=== PATIENT | female | born 1990 | race Caucasian/White ===

== ENCOUNTER 2024-01-28 13:20 | Emergency (ER) | payer MEDICAID, SELFPAY ==
[2024-01-28 13:21] VITALS: BMI 26.6
[2024-01-28 13:33] VITALS: BP 110/73; PULSE 59; RESP 16; TEMP 36.8; O2SAT 99
--- NOTE | 2024-01-28 13:38 | EKG_ITS ---
[facility] Test Date: 2024-01-28 Pat Name: CONNER MURPHY Department: Room: - Gender: Female [employer] Supervisor: : 1990 Requested By: Sukhwinder Gotti Order Number: [id number] Reading MD: Sukhwinder Gotti Measurements Intervals [place] Rate: 65 P: 56 NE: 138 QRS: 42 QRSD: 102 T: 50 QT: 403 QTc: 419 Interpretive Statements SINUS RHYTHM No previous ECG available for comparison /store/S0/[id number].pdf
--- NOTE | 2024-01-28 13:39 | PD.EDRME ---
Rapid Medical Screening Exam RME Arrival date/time: 01/28/24 13:20 Chief Complaint: Syncope / Near Syncope Time Seen by Provider: 01/28/24 13:23 Vital signs: Vital Signs Temperature 98.2 F 01/28/24 13:33 Pulse Rate 59 L 01/28/24 13:33 Respiratory Rate 16 01/28/24 13:33 Blood Pressure 110/73 01/28/24 13:33 Pulse Oximetry (%) 99 01/28/24 13:33 Oxygen Delivery Method Room Air 01/28/24 13:33 E Narrative: c/o fatigue, body aches, nausea, lightheadedness, near syncope since this morning.
[2024-01-28 14:12] LABS: Basophils # (Auto) 0.1 Thou/mm3 (0.0-0.2); Basophils % (Auto) 1 % (0-2.5); Eosinophils # (Auto) 0.1 Thou/mm3 (0.0-0.5); Eosinophils % (Auto) 1 % (0-10); Immature Granulocytes % (Auto) 0 % (0-0); Immature Granulocytes Auto 0.02 Thou/mm3 (0.00-0.00); Lymphocytes # (Auto) 2.1 Thou/mm3 (1.0-4.8); Lymphocytes % (Auto) 30 % (10-50); Mean Corpuscular HGB Conc 34.3 g/dl (31.0-37.0); Mean Corpuscular Hemoglobin 31.5 pg (25.0-35.0); Mean Corpuscular Volume 92 fL (80-100); Monocytes # (Auto) 0.4 Thou/mm3 (0.0-0.8); Monocytes % (Auto) 6 % (0-12); Neutrophils # (Auto) 4.5 Thou/mm3 (1.8-7.7); Neutrophils % (Auto) 63 % (37-80); Nucleated Red Blood Cell % 0 /100 WBC (0); Platelet Count 300 Thou/mm3 (140-440); RDW Standard Deviation 43.3 fL (36.4-46.3); Red Blood Count 3.81 Miln/mm3 (4.00-5.20); White Blood Count 7.1 Thou/mm3 (3.6-11.0)
[2024-01-28 14:29] LABS: Alanine Aminotransferase 31 U/L (10-49); Albumin, Serum 4.5 gm/dL (3.5-5.0); Alkaline Phosphatase 60 U/L (46-116); Anion Gap 4 (7-16); Aspartate Amino Transferase 19 U/L (0-34); BUN/Creatinine Ratio 14 Ratio (12-20); Bilirubin,Total 0.8 mg/dL (0.3-1.2); Blood Urea Nitrogen 14 mg/dL (9-23); Calcium 9.3 mg/dL (8.3-10.6); Calcium (Corrected) 9.3 mg/dL (8.5-10.1); Carbon Dioxide 26.4 mMol/L (20.0-31.0); Chloride 107 mMol/L (98-107); Estimated Creatinine Clearance 80.6 mL/min (>60); Globulin 2.3 gm/dL (2.3-3.5); Glucose 82 mg/dL (74-106); Osmolality,Calculated 273 (275-295); Potassium 3.6 mMol/L (3.4-5.1); Sodium 137 mMol/L (136-145); Total Protein 6.8 gm/dL (5.7-8.2); Troponin I < 0.020 ng/mL (0.0-0.045); eGFR > 60 See Note
[2024-01-28 15:25] LABS: Collection Type, Urine Clean Catch
[2024-01-28 15:32] LABS: Bilirubin,Urine Negative (Negative); Blood,Urine Negative (Negative); Clarity,Urine Clear (Clear/Hazy); Color,Urine Lt-Yellow (Lt Yel-Yel); Glucose, Urine Negative (Negative); Ketones,Urine Negative (Negative); Leukocyte Esterase,Urine Negative (Negative); Nitrite,Urine Negative (Negative); PH,Urine 6.5 (5.0-7.0); Protein,Urine Negative (Neg - Trace); RBC,Urine 1 /hpf (0-3); Specific Gravity,Urine 1.024 (1.001-1.035); Squamous Epithelial Cell,Urine 2 /hpf (0-5); Urobilinogen,Urine Negative mg/dL (0.0-1.0); WBC,Urine < 1 /hpf (0-5)
[2024-01-28 15:33] LABS: HCG Qualitative,Urine Negative
--- NOTE | 2024-01-28 16:42 | PD.EDDIZZY ---
ED Dizzyness RME/HPI General Chief Complaint: Syncope / Near Syncope Stated Complaint: LIGHTHEADED THIS AM Time Seen by Provider: 01/28/24 13:23 Source: patient, RN notes reviewed and old records reviewed Arrival date/time: 01/28/24 13:20 Mode of arrival: ambulatory Limitations: no limitations RME / HPI RME / HPI Narrative: 33yof presents to ED for lightheadedness, near syncope since this morning. Patient c/o fatigue, body aches and mild nausea. No known sick contacts. No fever, cough, sob, cp, vomiting, abdominal pain or fainting reported. No medications or treatments since symptom onset. Related Data Previous Rx's ?Medication ?Instructions ?Recorded ibuprofen 600 mg tablet 600 mg PO Q6H PRN fever or pain 01/28/24 #30 tabs ondansetron 4 mg disintegrating 4 mg PO Q6H PRN nausea and 01/28/24 tablet vomiting #10 tabs Allergies Allergy/AdvReac Type Severity Reaction Status Date / Time No Known Allergies Allergy Verified 01/28/24 13:23 Review of Systems Review of Systems Systems Reviewed: All systems reviewed, normal except as documented Constitutional Constitutional: Reports body ache(s), Reports fatigue, Denies fever(s) and Reports headache(s) ENT Ears, Nose, Mouth, and Throat: Reports headache(s) and Denies nasal congestion Cardiovascular Cardiovascular: Denies chest pain, Denies dyspnea, Reports lightheadedness and Denies syncope Respiratory Respiratory: Denies cough and Denies dyspnea Gastrointestinal Gastrointestinal: Denies abdominal pain, Reports nausea and Denies vomiting Musculoskeletal Musculoskeletal: Reports myalgias Neurologic Neurologic: Reports headache(s) and Denies syncope Endocrine Endocrine: Reports fatigue Past Medical History Surgical History OTHER SURGICAL HX: denies pshx Social History SMOKING STATUS: Never smoker SUBSTANCE USE: marijuana ALCOHOL: Never Past Medical History Comments PMH COMMENT: denies pmhx ED Exam General Limitations: Present no limitations General appearance: Present alert and in no apparent distress Head Head exam: Present atraumatic and normocephalic Eye Eye exam: Present normal appearance, PERRL and EOMI ENT ENT exam: Present normal exam and mucous membranes moist Neck Neck exam: Present normal inspection and full ROM Chest Chest inspection: Present normal inspection and symmetric chest wall rise Respiratory Respiratory exam: Present normal lung sounds bilaterally; Absent respiratory distress Cardiovascular Cardiovascular exam: Present regular rate and normal rhythm Abdominal Exam Abdominal exam: Present soft; Absent distention or tenderness Extremities Exam Extremities exam: Present normal inspection and full ROM Neurological Exam Neurological exam: Present alert and oriented X3 Psychiatric Psychiatric exam: Present normal affect and normal mood Skin Skin exam: Present warm, dry, intact and normal color Course Quality Measures none Orders Category Date Time Status Bedside COVID-19 Antigen Test NOW Care 01/28/24 13:38 Completed Bedside Influenza A&B Antigen Test NOW Care 01/28/24 13:38 Completed EKG (ED ONLY) *Do not use* NOW Care 01/28/24 13:39 Completed EKG (ED Only) Stat Exams 01/28/24 13:38 Draft CBC Stat Lab 01/28/24 13:53 Completed CMP [Comprehensive Metabolic Panel] Stat Lab 01/28/24 13:53 Completed HCG Qualitative,Urine Stat Lab 01/28/24 15:17 Completed Troponin I Stat Lab 01/28/24 13:53 Completed UA [Urinalysis] Stat Lab 01/28/24 15:17 Completed Acetaminophen Tab [Tylenol ES Tab] Med 01/28/24 16:51 Discontinued 1,000 mg PO X1 ONE Ondansetron Odt [Zofran Odt] Med 01/28/24 16:51 Discontinued 4 mg PO X1 ONE Vital Signs Vital signs: Vital Signs Temperature 98.2 F 01/28/24 13:33 Pulse Rate 59 L 01/28/24 13:33 Respiratory Rate 16 01/28/24 13:33 Blood Pressure 110/73 01/28/24 13:33 Pulse Oximetry (%) 99 01/28/24 13:33 Oxygen Delivery Method Room Air 01/28/24 13:33 Procedures -ED EKG Interpretation #1: Date of EK01/28/24 Rate: 65 Interpretation: Interpreted by me EKG Impression: Normal sinus rhythm, No acute ST-T changes, No ectopy, No ischemic changes, Normal QRS, Normal intervals and Normal axis Dizziness MDM Narrative MDM Narrative:: 33yof presents to ED for lightheadedness, near syncope since this morning. Patient c/o fatigue, body aches and mild nausea. No known sick contacts. No fever, cough, sob, cp, vomiting, abdominal pain or fainting reported. No medications or treatments since symptom onset. ED workup and exam reassuring. Patient is well-appearing, afebrile, vitals are stable. Suspect viral etology of symptoms. Encouraged rest, fluids, symptomatic treatment prn. Stable for dc, RTED precautions given. Patient data External records reviewed:: [facility] previous records (01/21/19 ED visit for knee injury) Clinical information provided by:: patient Social determinants that could affect healthcare access:: none Patient has the following chronic illnesses:: none How is presenting disease/condition affected by chronic disease/condition?: no chronic disease Evaluation data The following diagnostics were reviewed and interpreted by me:: lab results and EKG tracing(s) Lab and/or radiology exams considered but not ordered:: none Interpretation Summary: wbc 7 hgb 12 UA neg upreg neg covid/flu neg Medications / Prescriptions Medications or Prescriptions considered but not ordered:: no antibiotics recommended at this time Medication administrations:: Medication Administration History Discontinued Medications Acetaminophen (Acetaminophen 500 Mg Tablet) 1,000 mg PO X1 ONE Stop: 01/28/24 16:52 Last Admin: 01/28/24 17:06 Dose: 1,000 mg Documented By: Ondansetron HCl (Ondansetron Odt 4 Mg Tabrap) 4 mg PO X1 ONE; Protocol Stop: 01/28/24 16:52 Last Admin: 01/28/24 17:06 Dose: 4 mg Documented By: above medications administered in ED Consultations Consultation(s) initiated? (list below): No Diagnosis Dizziness Differential Diagnosis: other (viral syndrome, covid, flu, dehydration, stress) Most likely diagnosis given after review of the tests above:: flu like illness, viral syndrome Admission Indicated Admission indicated?: not indicated Admission Request Was there a request for admission?: No Disposition Plan Disposition Plan: Discharge Discharge Attestation Discharge Attestation: The patient and all family members were given an opportunity to ask questions and understood the discharge instructions. Discharge instructions specifically effects, indications for sooner follow up or return to the emergency department, and the expected course of current diagnosis. Patient condition: Stable Discharge Plan Plan Patient Disposition: HOME (Self Care) Patient condition on transfer: Stable Prescriptions/Referrals Prescriptions/Med Rec: New ondansetron 4 mg tablet,disintegrating 4 mg PO Q6H PRN (Reason: nausea and vomiting) Qty: 10 0RF ibuprofen 600 mg tablet 600 mg PO Q6H PRN (Reason: fever or pain) Qty: 30 0RF Referrals: Royer Dunlap MD [Primary Care Provider] - In 1 week Problem List Clinical Impression: Viral syndrome, Lightheadedness Patient/Caregiver Discharge Instructions Education Materials: ED Dizziness, Uncertain Cause, ED Viral Syndrome (Adult) Additional Instructions: Make sure to drink plenty of fluids, get plenty rest. Print Language: [place]serratian Stand Alone Forms: Mari Award Info., Patient Portal Info Letter PA/RADIOTELEGRAPH OPERATOR SERVICER Supervising Physician PA/RADIOTELEGRAPH OPERATOR SERVICER Supervising Physician: Shireen
[2024-01-28] MEDS: ACETAMINOPHEN 500 MG TABLET 1000 MG PO (17:06)
[2024-01-28] MEDS: ONDANSETRON ODT 4 MG TABRAP PO (17:06)
== END 2024-01-28 17:41 | disposition home or self-care (01) ==
PROVIDERS: Physician Assistant; Emergency Provider Emergency Medicine; PCP Family Medicine
DX: B34.9 Viral infection, unspecified (principal); R42 Dizziness and giddiness
CPT/HCPCS: 36415; 80053; 81001; 81025; 84484; 85025; 87400; 87811; 93005; 99283; Q0162; A9270

== ENCOUNTER 2024-04-21 19:17 | Emergency (ER) | payer MEDICAID, SELFPAY ==
[2024-04-21 19:18] VITALS: BMI 24.7
[2024-04-21 20:08] VITALS: BP 109/66; PULSE 95; RESP 17; TEMP 36.9; O2SAT 98
--- NOTE | 2024-04-21 20:15 | PD.EDURI ---
Upper Respiratory Inf. RME/HPI General Chief Complaint: Flu Like Symptoms Stated Complaint: FLU LIKE SYMPTOMS, FEVER Time Seen by Provider: 04/21/24 19:20 Arrival date/time: 04/21/24 19:17 33-year-old female reports with complaints of bodyaches cough congestion and fever and chills. Patient states that her and children all have influenza she is concerned that she may have influenza. She denies any shortness of breath chest pain nausea vomiting abdominal pain or skin rash Limitations: no limitations Related Data Previous Rx's ?Medication ?Instructions ?Recorded ibuprofen 600 mg tablet 600 mg PO Q6H PRN fever or pain 01/28/24 #30 tabs ondansetron 4 mg disintegrating 4 mg PO Q6H PRN nausea and 01/28/24 tablet vomiting #10 tabs Allergies Allergy/AdvReac Type Severity Reaction Status Date / Time No Known Allergies Allergy Verified 01/28/24 13:23 Review of Systems Constitutional Constitutional: Reports body ache(s), Reports chills and Reports fever(s) ENT Ears, Nose, Mouth, and Throat: Denies sore throat, Denies throat swelling and Denies vertigo Cardiovascular Cardiovascular: Denies chest pain, Denies claudication and Denies dyspnea Respiratory Respiratory: Reports cough and Denies dyspnea Gastrointestinal Gastrointestinal: Denies nausea and Denies vomiting Musculoskeletal Musculoskeletal: Denies arthralgias and Reports myalgias Integumentary/Breasts Skin/Breast: Denies rash and Denies sores Neurologic Neurologic: Denies convulsions and Denies vertigo Allergic/Immunologic Allergic/Immunologic: Denies throat swelling Past Medical History Social History SMOKING STATUS: Never smoker SUBSTANCE USE: marijuana ED Exam General Limitations: Present no limitations General appearance: Present alert and in no apparent distress Head Head exam: Present atraumatic Eye Eye exam: Present normal appearance, PERRL and EOMI ENT ENT exam: Present normal exam, normal oropharynx and mucous membranes moist Neck Neck exam: Present normal inspection, full ROM and trachea midline Chest Chest inspection: Present normal inspection and symmetric chest wall rise Respiratory Respiratory exam: Present normal lung sounds bilaterally Cardiovascular Cardiovascular exam: Present regular rate, normal rhythm and normal heart sounds Abdominal Exam Abdominal exam: Present soft and normal bowel sounds Extremities Exam Extremities exam: Present normal inspection and full ROM Back Exam Back exam: Present normal inspection and full ROM Neurological Exam Neurological exam: Present alert, oriented X3 and CN II-XII intact Psychiatric Psychiatric exam: Present normal affect and normal mood Skin Skin exam: Present warm, dry, intact and normal color Course Quality Measures none Vital Signs Vital signs: Vital Signs Temperature 98.5 F 04/21/24 20:08 Pulse Rate 95 04/21/24 20:08 Respiratory Rate 17 04/21/24 20:08 Blood Pressure 109/66 04/21/24 20:08 Pulse Oximetry (%) 98 04/21/24 20:08 Oxygen Delivery Method Room Air 04/21/24 20:08 Upper Respiratory Infection Patient data External records reviewed:: None Clinical information provided by:: patient Social determinants that could affect healthcare access:: none Patient has the following chronic illnesses:: none How is presenting disease/condition affected by chronic disease/condition?: no chronic disease Evaluation data The following diagnostics were reviewed and interpreted by me:: other (specify) Lab and/or radiology exams considered but not ordered:: flu Interpretation Summary: n/a Medications / Prescriptions Medications or Prescriptions considered but not ordered:: None Medication administrations:: Motrin Consultations Consultation(s) initiated? (list below): No Diagnosis Upper Respiratory Differential Diagnosis: upper respiratory infection, viral infection and influenza Most likely diagnosis given after review of the tests above:: Flu Admission Indicated Admission indicated?: not indicated Admission Request Was there a request for admission?: No Disposition Plan Disposition Plan: Discharge Discharge Attestation Discharge Attestation: The patient and all family members were given an opportunity to ask questions and understood the discharge instructions. Discharge instructions specifically effects, indications for sooner follow up or return to the emergency department, and the expected course of current diagnosis. Patient condition: Stable Discharge Plan Plan Patient Disposition: HOME (Self Care) Prescriptions/Referrals Prescriptions/Med Rec: No Action ondansetron 4 mg tablet,disintegrating 4 mg PO Q6H PRN (Reason: nausea and vomiting) Qty: 10 0RF ibuprofen 600 mg tablet 600 mg PO Q6H PRN (Reason: fever or pain) Qty: 30 0RF Problem List Clinical Impression: Influenza Patient/Caregiver Discharge Instructions Discharge Activity: activity as tolerated Education Materials: ED URI, Viral, No Abx (Adult) Additional Instructions: Take medications such as Tylenol and/or Motrin or TheraFlu or NyQuil as directed, hydrate well, get plenty of rest and follow up with PCP if you are not better in 5 days. The cough associated with the flu virus can sometimes last for several weeks after all other symptoms have gone, take OTC cough medication as needed for your cough Print Language: Romanian Stand Alone Forms: Mari Award Info., Patient Portal Info Letter
[2024-04-21] MEDS: IBUPROFEN TAB 400 MG TABLET 800 MG PO (20:43)
== END 2024-04-21 20:30 | disposition home or self-care (01) ==
LOC: SERX 20:34
PROVIDERS: Emergency Provider Emergency Medicine; PCP Family Medicine
DX: J11.1 Influenza due to unidentified influenza virus with other respiratory manifestations (principal)
CPT/HCPCS: 99282; A9270

== ENCOUNTER 2024-12-13 05:06 | Inpatient (IN) | payer MEDICAID, SELFPAY ==
[2024-12-13] VITALS (12 sets, daily range): BP systolic 111–127; BP diastolic 71–85; PULSE 60–77; RESP 16–18; TEMP 36.7–36.8; O2SAT 97–99; BMI 27.4
[2024-12-13] MEDS: OXYTOCIN in NS 20 units 20 UNIT/1,000 ML BAG 125 UNIT IV (05:17)
[2024-12-13] MEDS: LIDOCAINE HCL 1% 20 ML VIAL INFL (05:18)
[2024-12-13] MEDS: OXYTOCIN INJ 10 UNIT/ML VIAL IM (05:19)
--- NOTE | 2024-12-13 05:45 | PD.LDHP ---
Documentation for date of: 12/13/24 OB Labor/Induct. HPI History of Present Illness Chief complaint: Home delivery brought in by ambulance : 7 Term pregnancies: 6 Living children: 6 History of Vaginal deliveries: 6 History of sections: No History of : No Date of last menstrual period: 03/02/24 AMITA: 12/07/24 Gestational Age (weeks): 40 Gestational Age (days): 6 Gestational age based on last menstrual period: 40 History of present illness: The patient is a 34-year-old G7, P7 brought in by ambulance for a home delivery approximately 4:15 in the morning. Her delivered the baby. Sounds like it was a planned home delivery. It was her second home delivery. She states the other babies were born in hospitals. We have documentation of the first 3 babies being born at [facility]. The 6 baby allegedly delivered at home also. Were not sure where the baby #4 and 5 delivered. Patient presented to our floor approximately 5:10 AM. Her placenta was still in situ and the baby was still attached to the umbilical cord which had not been cut yet. History of Present Dating criteria: based on LMP only Adequate Care: No Ultrasounds: none Obstetrical complications: other (Grand multiparity, no care) Medical complications: none Labs Maternal Blood Type: Unknown Labs: Unknown: RPR, Hepatitis B, Rubella Titre, HIV, Chlamydia, Gonorrhea, Herpes Type 1, Herpes Type 2, Group Beta Strep and Covid-19 Past Medical History Surgical History SURGICAL: Negative Section Past Medical History Comments PMH COMMENT: Per notes from last known in 2021, patient admits to a history of asthma and uses an inhaler. She has a history of anxiety depression per notes. She denies other surgeries. She states she has had 6 vaginal deliveries. Meds Home Medications and Allergies Allergies Allergy/AdvReac Type Severity Reaction Status Date / Time No Known Allergies Allergy Verified 01/28/24 13:23 OB Exam Physical Exam Vital signs: Pulse BP 70 127/85 H 12/13/24 05:31 12/13/24 05:31 Narrative: Patient is alert and oriented x 3 answering questions appropriately. She has a first-degree right labial minora laceration Routine Abdominal Exam Abdominal: Present soft Comments: Placenta in situ. Fundus at umbilicus OB Assessment & Plan Assessment and Plan (1) care following vaginal delivery: Status: Acute Assessment and plan: Admit patient. IM Pitocin. Delivered placenta approximately an hour after delivery. Repaired first-degree labial laceration under local anesthesia. Will draw all labs and a drug screen. (2) Home childbirth planned: Status: Acute
[2024-12-13] MEDS: IBUPROFEN TAB 400 MG TABLET 800 MG PO ×3 (05:53→23:28)
--- NOTE | 2024-12-13 06:04 | OBDSUM_ITS ---
Data ([place]) Data Hx Section: No Maternal Blood Type: Unknown Rubella Titre: Unknown RPR: Unknown Labs: Unknown: RPR, Hepatitis B, HIV, Chlamydia, Gonorrhea, Herpes Type 1, Herpes Type 2 and Group Beta Strep : 7 Term: 6 Livin Delivery Data ([place]) Labor Data Initiation of labor: Spontaneous Delivery Data EDC: 12/07/24 EDC calculated by:: LMP Date of arrival to unit: 12/13/24 Time of arrival to unit: 05:05 [place] delivery date: 12/13/24 [place] delivery time: 04:14 Gestational age (weeks): 40 Gestational age (days): 6 Placenta delivery date: 12/13/24 Placenta delivery time: 05:15 Delivered by: FOB Acquisition Consultant at delivery: No Delivery Method Delivery method: Normal Vaginal Delivery Anesthesia Type Anesthesia type: None Delivery Room Medications Delivery room medications: Pitocin 10 u IM Placenta Placenta delivery description: Spontaneous Cord blood sent to lab: Yes cord blood collection: Cord Blood Type Episiotomy Episiotomy description: None Lacerations #1: Labial: First degree Perineal repair Sutures used for repair: 4.0 Chromic EBL Estimated blood loss (ml): 50 Umbilical Cord cord description: 3 Vessels Additional Procedures The patient is a 34-year-old G7, P7 who arrived by ambulance stating that she had a planned home delivery early this morning. Her apparently delivered the baby at 0414 in the morning. Patient arrived in the unit by 0508 with the placenta in situ the baby on her chest still attached to the umbilical cord. Baby was vigorous and crying. The cord was clamped and cut and the baby was handed off to the waiting pediatric staff. The fundus was then gently massaged and the placenta delivered intact at 0515. The patient was given IM Pitocin. A first-degree right labia minora laceration was repaired under local anesthesia using 4-0 chromic. Complications were none EBL in the delivery room was 50 cc. Of note patient had no care this . No labs were available at the time of dictation. Baby's blood sugar was 19 so it went to the nursery for observation. It appeared to be a full-term baby liveborn female weighing 8 pounds or 3625 g vigorous and crying approximately an hour after delivery when I was at bedside. The patient wants to take her placenta home with her and will sign a form. Complications Complications: none [place] Data ([place]) Data 's gender: Female weight (gms): 3628.739 g Additional Comments Additional comments: No Apgars can be assigned to the baby as it was not seen until an hour after delivery at that point Apgars would have been 10 and 10.
[2024-12-13] MEDS: ACETAMINOPHEN 325 MG TABLET 650 MG PO (07:54)
[2024-12-13 08:33] LABS: Amphetamine/Metham Scrn,Ur OB Negative (Negative); Benzoylecgonine Screen, Ur OB Negative (Negative); Opiate Screen,Urine OB Negative (Negative); THC Screen,Urine OB Positive (Negative); THC U Confirm* See Sep Rpt
--- NOTE | 2024-12-13 08:59 | PC.NURSE ---
0508, PT. ARRIVED TO UNIT VIA GOURNEY. PT. WAS BROUGHT IN TO HOSPITAL VIA EMS. PT. AWAKE, A/O X4. HOLDING FEMALE IN HER ARMS. INFANT APPEARS STABLE. PT. VERBALIZED SHE DELIVERED AT HOME AND WAS DELIVERED BY HER AT APPROX. 0414 THIS MORNING. PT. STATES SHE HAD ONE VISIT WITH THIS AND HAD NO OTHER VISITS DUE TO LACK OF OB PROVIDERS AT [facility] AND NEVER FOLLOWED UP WITH ANY OTHER PROVIDERS. DENIES ANY SIGNIFICANT MEDICAL HX. STATES SHE IS A WITH 6 OTHER PREVIOUS VAGINAL DELIVERIES WITH NO COMPLICATIONS. PT. STATES PLACENTA HAS NOT YET DELIVERED. PT. PLACED IN BED, V/S TAKEN, IV PRESENT TO R) AC AT ARRIVAL. AWAITING FOR MD. TO ARRIVE.
--- NOTE | 2024-12-13 09:04 | PC.NURSE ---
0511, DR. ARDON IN UNIT NOW TO SEE PT. PT. PREPPED FOR DELIVERY OF PLACENTA. 0515, PLACENTA DELIVERED AT THIS TIME, OXYTOCIN IM AND OXYTOCIN IV GIVEN PER ORDERS. PT. TOLERATED WELL. LACERATION REPAIR PERFORMED BY AT THIS TIME. NO COMPLICATIONS AT THIS TIME.
--- NOTE | 2024-12-13 10:00 | PC.SS ---
SS conducted bedside contact with the patient to address nursing referral.? SS discussed with patient the basis of the referral. SS discussed self and role. ?SS asked for permission to speak in front of fluorescent lighting model maker.? Patient agreed.? SS received referral indicating patient had a positive tox for thc.? NB tox was pending. Patient confirmed she used THC during .? Patient states she?s been having a hard time quitting. Patient form of use was smoking THC. Patient verbalized she has had a CWS case previously with another child for positive tox for THC. Patient resides at home with her fluorescent lighting model maker, FOB, Herrera Dunlap. FOB is involved. Patient had baby girl, via natural at home. NB born 12-13-[birth year]. ?This is patient?s 7th child. All other children are in the home.? Children?s ages:? 13, 12, 4, 3, 2, and 1 years old. The 13 and 12 year old have different father, Davy Dunlap. Patient received late care close to 4 months at [facility]. Patient was not consistent with care. Patient states she figured this is her 7th child and she knew what to do. Patient had an emergency home . ?Patient denies any other history of drug or alcohol abuse. Patient denies any history of domestic violence. Patient states she?s had depression and anxiety but not on any medication. Patient states she plans on combo of bottle feeding and breast feeding. Patient has access to a car seat. Patient is not aligned with WIC. No Patient is aligned with SNAP and TANF. SS will follow up with NB tox. SS verbalized to patient if NB is positive we would conduct a CWS report. Patient understood and states she?s been through this with a previous baby. Patient has access to appropriate supplies and equipment. customer services supervisor provided resources to include:? [employer], Warm Line and community numbers.? ?[facility] will provide transportation upon discharge. No further intervention required at this time. Client Leader will be available to address any further concerns. SS updated bedside nurse.
[2024-12-13 11:57] LABS: Basophils # (Auto) 0.0 Thou/mm3 (0.0-0.2); Basophils % (Auto) 0 % (0-2.5); Eosinophils # (Auto) 0.0 Thou/mm3 (0.0-0.5); Eosinophils % (Auto) 0 % (0-10); Hematocrit 31.6 % (36.0-46.0); Hemoglobin 10.8 g/dL (12.0-16.0); Immature Granulocytes Auto 0.04 Thou/mm3 (0.00-0.00); Lymphocytes # (Auto) 1.3 Thou/mm3 (1.0-4.8); Lymphocytes % (Auto) 13 % (10-50); Mean Corpuscular HGB Conc 34.2 g/dl (31.0-37.0); Mean Corpuscular Hemoglobin 31.9 pg (25.0-35.0); Mean Corpuscular Volume 93 fL (80-100); Monocytes # (Auto) 0.7 Thou/mm3 (0.0-0.8); Monocytes % (Auto) 7 % (0-12); Neutrophils # (Auto) 8.1 Thou/mm3 (1.8-7.7); Neutrophils % (Auto) 80 % (37-80); Nucleated Red Blood Cell # 0.00 Thou/mm3 (0.00-0.00); Nucleated Red Blood Cell % 0 /100 WBC (0); Platelet Count 218 Thou/mm3 (140-440); RDW Standard Deviation 42.6 fL (36.4-46.3); Red Blood Count 3.39 Miln/mm3 (4.00-5.20); White Blood Count 10.2 Thou/mm3 (3.6-11.0)
[2024-12-13 12:38] LABS: Hepatitis B Surface Antigen Non Reactive (Non React); Rubella, IgG Antibody Reactive (Immune)
[2024-12-13 12:42] LABS: Syphilis Nonreactive (Nonreactive)
[2024-12-13] MEDS: DOCUSATE SOD 100 MG CAPSULE PO (23:29)
[2024-12-14 00:14] LABS: HIV (1&2) Antibody Rapid Non-Reactive
[2024-12-14 04:40] VITALS: BP 118/81; PULSE 72; RESP 16; TEMP 36.5; O2SAT 98
[2024-12-14] MEDS: ACETAMINOPHEN 325 MG TABLET 650 MG PO (04:53)
[2024-12-14 06:55] LABS: Basophils # (Auto) 0.0 Thou/mm3 (0.0-0.2); Basophils % (Auto) 1 % (0-2.5); Eosinophils # (Auto) 0.2 Thou/mm3 (0.0-0.5); Eosinophils % (Auto) 2 % (0-10); Hematocrit 31.4 % (36.0-46.0); Hemoglobin 10.7 g/dL (12.0-16.0); Immature Granulocytes Auto 0.06 Thou/mm3 (0.00-0.00); Lymphocytes # (Auto) 1.9 Thou/mm3 (1.0-4.8); Lymphocytes % (Auto) 25 % (10-50); Mean Corpuscular HGB Conc 34.1 g/dl (31.0-37.0); Mean Corpuscular Hemoglobin 32.2 pg (25.0-35.0); Mean Corpuscular Volume 95 fL (80-100); Monocytes # (Auto) 0.6 Thou/mm3 (0.0-0.8); Monocytes % (Auto) 7 % (0-12); Neutrophils # (Auto) 4.9 Thou/mm3 (1.8-7.7); Neutrophils % (Auto) 64 % (37-80); Nucleated Red Blood Cell # 0.00 Thou/mm3 (0.00-0.00); Nucleated Red Blood Cell % 0 /100 WBC (0); Platelet Count 212 Thou/mm3 (140-440); RDW Standard Deviation 42.8 fL (36.4-46.3); Red Blood Count 3.32 Miln/mm3 (4.00-5.20); White Blood Count 7.6 Thou/mm3 (3.6-11.0)
[2024-12-14 08:11] VITALS: BP 121/86; PULSE 85; RESP 19; TEMP 36.6; O2SAT 100
[2024-12-14] MEDS: DOCUSATE SOD 100 MG CAPSULE PO (09:31)
--- NOTE | 2024-12-14 10:01 | PC.SS ---
Follow up note: SS filed CWS as NB's tox came back positive late yesterday at 4p.m. Copy placed in chart. Patient will be discharged home today w/baby. CWS will follow up.
--- NOTE | 2024-12-14 12:26 | PD.LDPPPRG ---
Subjective Subjective Interval history: Delivery type: Home with placenta delivery in the hospital Patient doing well this morning. No acute complaints. Ambulating, tolerating p.o., and voiding without difficulty. HTN/Pre-E screen negative: No CP, SOB, CALLEJAS, visual changes, RUQ pain. : Yes Lochia: diminishing Bowel: Flatus + / BM + UOP: Voiding freely Exam Vital Signs Temp Pulse Resp BP Pulse Ox O2 Del Method 97.8 F 85 19 121/86 H 100 Room Air 12/14/24 08:11 12/14/24 08:11 12/14/24 08:11 12/14/24 08:11 12/14/24 08:11 12/14/24 08:11 Constitutional Constitutional: no acute distress Routine HEENT Exam Head: Present normocephalic and atraumatic Eye: Present EOMI and PERRL ENT: Present mucous membranes moist Routine Neck Exam Neck: Present supple and trachea midline Routine Respiratory Exam Respiratory: Present chest non-tender, lungs clear, normal breath sounds and no resp distress Routine Cardiovascular Exam Cardiovascular: Present RRR Routine Abdominal Exam Abdominal: Present soft and normoactive bowel sounds Routine Extremities Exam Extremities: Present full ROM Routine Skin Exam Skin: Present intact, dry and warm Routine Neurological Exam Neurological: Present alert, oriented X3 and CN II-XII intact Routine Psychiatric Exam Psychiatric: Present normal affect and normal thought process Objective Labs 12/14/24 06:30 Labs: Laboratory Results - last 24 hr 12/13/24 12/14/24 11:23 06:30 WBC 7.6 RBC 3.32 L Hgb 10.7 L Hct 31.4 L MCV 95 MCH 32.2 MCHC 34.1 RDW Std Deviation 42.8 Plt Count 212 Neut % (Auto) 64 Lymph % (Auto) 25 Colbert % (Auto) 7 Eos % (Auto) 2 Baso % (Auto) 1 Neut # (Auto) 4.9 Lymph # (Auto) 1.9 Colbert # (Auto) 0.6 Eos # (Auto) 0.2 Baso # (Auto) 0.0 Immature Gran # (Auto) 0.06 H Absolute Nucleated RBC 0.00 Immature Gran % 1 H Nucleated RBC % 0 Syphilis Serology Nonreactive Hep Bs Antigen Non Reactive HIV 1&2 Antibody Rapid Non-Reactive Rubella IgG Antibody Reactive (Immune) Blood Type O Positive Antibody Screen NEGATIVE Assessment & Plan Problem List (1) care following vaginal delivery: Status: Acute Assessment and plan: 1. Continue routine /post-op care 2. Labs reviewed, cbc appropriate 3. Remove dressing/Kwok 4. Encourage to ambulate, shower 5. Encourage PO intake, breast feeding (2) Home childbirth planned: Status: Acute Time Spent With Patient Time: Total time spent is greater than 50% in coordination of care (as documented) at patient's floor/unit and/or counseling patient:
--- NOTE | 2024-12-14 12:27 | PD.LDDS ---
DS: Providers Provider Date of admission: 12/13/24 05:06 Primary care physician: Physician No Primary/Family Admitting Provider: Noreen [facility]adia [facility] ([facility]) Attending Provider on Admission: Moise Chamorro MD Consults: 12/13/24 05:43 Referral Routine Comment: Attending Provider on DC: Moise Chamorro MD Discharging Provider: Moise Chamorro MD DS: Diagnosis Discharge Diagnosis (1) Home childbirth planned: Status: Acute (2) care following vaginal delivery: Status: Acute Problem List Completed Was Problem List Reviewed/Reconciled?: Yes Summary/Hosp Course Brief History: The patient is a 34-year-old G7, P7 brought in by ambulance for a home delivery approximately 4:15 in the morning. Her delivered the baby. Sounds like it was a planned home delivery. It was her second home delivery. She states the other babies were born in hospitals. We have documentation of the first 3 babies being born at [facility] [place]. The 6 baby allegedly delivered at home also. Were not sure where the baby #4 and 5 delivered. Patient presented to our floor approximately 5:10 AM. Her placenta was still in situ and the baby was still attached to the umbilical cord which had not been cut yet. Peripartum Data Delivery Method: Precipitous Vaginal Delivery Episiotomy Description: None Time Spent with Patient Time attestation: Total time spent providing and/or coordinating discharge services: Exam Vital Signs Temp Pulse Resp BP Pulse Ox O2 Del Method 97.8 F 85 19 121/86 H 100 Room Air 12/14/24 08:11 12/14/24 08:11 12/14/24 08:11 12/14/24 08:11 12/14/24 08:11 12/14/24 08:11 Discharge Plan Plan Patient Disposition: HOME (Self Care) Patient condition on transfer: Stable Prescriptions/Referrals Prescriptions/Med Rec: New ibuprofen 600 mg tablet 600 mg PO Q6H MDD 4 PRN (Reason: fever or pain) 10 Days Qty: 40 0RF Continued ondansetron 4 mg tablet,disintegrating 4 mg PO Q6H PRN (Reason: nausea and vomiting) Qty: 10 0RF ibuprofen 600 mg tablet 600 mg PO Q6H PRN (Reason: fever or pain) Qty: 30 0RF Referrals: No Primary/Family,Physician [Primary Care Provider] Patient/Caregiver Discharge Instructions Meds to Beds: Yes Discharge Activity: activity as tolerated Education Materials: After Delivery Concerns Print Language: Somali Stand Alone Forms: Mari Award Info., Patient Portal Info Letter Discharge Order Discharge Orders: Discharge (Routine); Ordered 12/14/24 Ordered By: Moise Chamorro Planned Discharge Date 12/14/24
--- NOTE | 2024-12-14 17:24 | PC.NURSE ---
Pt discharged, signed DC consent at 1325, out of hospital at 1415. Unable to chart actual time on DC order due to community outreach specialist moving pts in system.
== END 2024-12-14 16:45 | disposition home or self-care (01) | DRG 560 ==
LOC: S4SX 06:45 → S4NX 08:08 → S4SX 12-14 16:31
PROVIDERS: Admitting Provider Obstetrics & Gynecology; Visit Provider Obstetrics & Gynecology
DX: O48.0 Post-term pregnancy (principal); O70.0 First degree perineal laceration during delivery; Z37.0 Single live birth; Z3A.40 40 weeks gestation of pregnancy
CPT/HCPCS: 36415; 59409; 80307; 85025; 86703; 86762; 86780; 86850; 86900; 86901; 87340; J2590; J3490; S0191; A9270

== ENCOUNTER 2024-12-15 15:14 | Emergency (ER) | payer MEDICAID, SELFPAY ==
[2024-12-15 15:15] VITALS: BMI 25.0
[2024-12-15 15:55] VITALS: BP 110/67; PULSE 71; RESP 18; TEMP 36.7; O2SAT 98
--- NOTE | 2024-12-15 16:10 | EDNOTE_ITS ---
ED Wound/Laceration-RME/HPI General Chief Complaint: Wound Recheck / Suture Removal Stated Complaint: BURNING SENSATION IN PERINEUM AREA S/P STITCHES Time Seen by Provider: 12/15/24 15:58 Arrival date/time: 12/15/24 15:14 RME / HPI RME / HPI narrative: DR. ROMO MAIN ED EVALUATION: 34-year-old female, 2 days following a vaginal delivery, presents to the Emergency Department for evaluation of pain and concern for possible sutures falling off. The patient reports she sustained a perineal tear during delivery that was repaired with stitches, but she believes some of the sutures may have come out too soon. She describes pain when walking and burning with urination. No fever or chills. No heavy bleeding, foul odor, or discharge. No abdominal pain, nausea, or vomiting. No known medical history or allergies. Related Data Previous Rx's ?Medication ?Instructions ?Recorded ibuprofen 600 mg tablet 600 mg PO Q6H PRN fever or p ain 01/28/24 #30 tabs ondansetron 4 mg disintegrating 4 mg PO Q6H PRN nausea and 01/28/24 tablet vomiting #10 tabs ibuprofen 600 mg tablet 600 mg PO Q6H PRN fever or p ain 10 12/14/24 days #40 tabs Allergies Allergy/AdvReac Type Severity Reaction Status Date / Time No Known Allergies Allergy Verified 12/15/24 15:19 Review of Systems Review of Systems Systems Reviewed: All systems reviewed, normal except as documented Past Medical History Past Medical History REPRODUCTIVE: Positive Previous Pregnancies PSYCHO/SOCIAL: Positive Depression and Anxiety Social History SMOKING STATUS: Never smoker SUBSTANCE USE: marijuana ALCOHOL: Never ED Exam Narrative Physical exam: GENERAL APPEARANCE: alert and oriented x 4, well-developed, well-nourished, no acute distress VITALS: All vitals were reviewed and the pulse ox is 98% on room air, which is normal according to my interpretation. HEENT: Normocephalic, atraumatic; pupils equal, round, reactive to light; EOMI; mucous membranes pink, moist; oropharynx clear NECK: Supple LUNGS: CTABL; no wheezes, no rales, no rhonchi HEART: Regular rate, regular rhythm; normal S1, S2; no murmurs ABDOMEN: non distended; normal BS; soft, no tenderness, no guarding, no rebound; no masses, no organomegaly, no hernia BACK: no CVA tenderness GENITALIA: About 2.5 cm right anterior labial laceration with subcutaneous sutures intact approximately 3 mm of subcutaneous sutures protruding through wound however wound is not open. EXTREMITIES: atraumatic; no edema NEUROLOGIC: awake; alert and oriented x4; cranial nerves II-XII grossly intact; no focal sensory or motor deficits PSYCHIATRIC: appropriate mood and affect SKIN: warm, dry, normal color; no rashes Course Quality Measures none Reevaluation(s) Reevaluation #1: We called Dr. Kapadia and left a message. Patient was told that Dr. Kapadia was called and to wait in the lobby in the meantime by our nurse Nayana and the patient replied with Well you're a real bitch to our nurse. Time: 16:40 Vital Signs Vital signs: Vital Signs Temperature 98.1 F 12/15/24 15:55 Pulse Rate 71 12/15/24 15:55 Respiratory Rate 18 12/15/24 15:55 Blood Pressure 110/67 12/15/24 15:55 Pulse Oximetry (%) 98 12/15/24 15:55 Oxygen Delivery Method Room Air 12/15/24 15:55 Wound / Laceration MDM Narrative MDM Narrative:: I, Marlyn Mcintosh, am scribing for and in the presence of Dr. Romo. Patient data External records reviewed:: [facility] previous records Clinical information provided by:: patient and spouse Social determinants that could affect healthcare access:: none Patient has the following chronic illnesses:: Denies any PMHx, surgeries, daily medications, or known allergies. 2 days following a vaginal delivery. How is presenting disease/condition affected by chronic disease/condition?: no chronic disease Evaluation data The following diagnostics were reviewed and interpreted by me:: other (specify) (none) Lab and/or radiology exams considered but not ordered:: none Interpretation Summary: n/a Medications / Prescriptions Medications or Prescriptions considered but not ordered:: none Medication administrations:: see above if any Consultations Consultation(s) initiated? (list below): Yes Consultation #1 (Physician, Specialty, Details): We called Dr. Kapadia and left a message. Time: 16:35 Diagnosis Wound Differential Diagnosis: other (Partial suture dehiscence, normal healing, and localized perineal irritation or infection.) Most likely diagnosis given after review of the tests above:: Suture check Admission Indicated Admission indicated?: not indicated Admission Request Was there a request for admission?: No Disposition Plan Disposition Plan: Discharge Discharge Attestation Discharge Attestation: The patient and all family members were given an opportunity to ask questions and understood the discharge instructions. Discharge instructions specifically effects, indications for sooner follow up or return to the emergency department, and the expected course of current diagnosis. Patient condition: Stable Discharge Plan Plan Patient Disposition: HOME (Self Care) Prescriptions/Referrals Prescriptions/Med Rec: No Action ondansetron 4 mg tablet,disintegrating 4 mg PO Q6H PRN (Reason: nausea and vomiting) Qty: 10 0RF ibuprofen 600 mg tablet 600 mg PO Q6H PRN (Reason: fever or pain) Qty: 30 0RF ibuprofen 600 mg tablet 600 mg PO Q6H MDD 4 PRN (Reason: fever or pain) 10 Days Qty: 40 0RF Problem List Clinical Impression: Suture check Patient/Caregiver Discharge Instructions Education Materials: Suture Care Print Language: Kazakh Stand Alone Forms: Mari Award Info., Patient Portal Info Letter
--- NOTE | 2024-12-15 16:41 | PC.NURSE ---
ADVISED PT THAT WAS CALLED PER DR. ALAN SHE STATED THAT SHE CALLED OFFICE DR. ARAYA WAS MATERIALS MANAGEMENT SUPERVISOR ADVISED LEFT MESSAGE AND WHO IS MATERIALS MANAGEMENT SUPERVISOR WILL CALL BACK. SHE ASKED WE DONT HAVE PROVIDER ON STAFF THAT IS [facility] THEY CAME IN PER PROVIDER SHE CAN FOLLOW UP WITH PRIMARY OR WAIT IN LOBBY FOR A CALL BACK IN WALKING OUT PT STATED YOU'RE A REAL BITCH. DID NOT ENGAGE WITH PT INFORMED CHARGE EMELIA AND .
--- NOTE | 2024-12-15 16:53 | PC.NURSE ---
No answer when called from the lobby for d/c.
--- NOTE | 2024-12-15 17:00 | PC.NURSE ---
no answer when called from lobby.
--- NOTE | 2024-12-15 17:08 | PC.NURSE ---
no answer when called from [facility]
== END 2024-12-15 17:09 | disposition home or self-care (01) ==
PROVIDERS: Emergency Provider Emergency Medicine
DX: O90.1 Disruption of perineal obstetric wound (principal)
CPT/HCPCS: 99281